=== PATIENT | female | born 1960 | race Two or more races ===

== ENCOUNTER 2016-08-22 13:23 | Emergency (ER) | payer MEDICARE, MEDICAID ==
[~2016-08-22] VITALS: Ht 165.1 cm; Wt 65.8 kg
[~2016-08-22 13:23] MED LIST: ALPR0.25 PO; DEPAKOTE; DILANTIN; LOSA25TA13 PO
--- NOTE | 2016-08-22 13:39 | NUR ---
Patient eloped from facility. ER MD notified.
== END 2016-08-22 13:41 | disposition left against medical advice (07) ==
LOC: ER 13:28
DX: Z53.21 Procedure and treatment not carried out due to patient leaving prior to being seen by health care provider (principal)
CPT/HCPCS: A4606; Z7610